=== PATIENT | male | born 1965 ===

== ENCOUNTER 2018-02-04 18:00 | Emergency (ER) | payer OTHER ==
[2018-02-04 18:10] VITALS: TEMP 98.3; O2SAT 99
[2018-02-04 19:00] VITALS: BP 132/76; PULSE 85; RESP 16
--- NOTE | 2018-02-04 19:16 | ED PDOC ---
HPI: Eye Injury/Pain Time Seen by Provider: 02/04/18 18:15 Chief Complaint (Nursing): Eye Problem Chief Complaint (Provider): Eye Problem History Per: Patient History/Exam Limitations: no limitations Onset/Duration Of Symptoms: Days (2x) Additional Complaint(s): 52 year old male presents to the ED complaining of redness, itchiness, and tearing to both eyes. 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 Reports he is exposed to dust and pollutants in the air. Otherwise: (-) rash, (- ) foreign body, (-) visual changes, (-) injury, (-) eye pain, (-) h/o seasonal allergies, (-) contact lens wear, (-) URI symptoms and (-) fever. Past Medical History Reviewed: Historical Data, Nursing Documentation, Vital Signs Vital Signs: Last Vital Signs Temp 98.3 F 02/04/18 18:07 Pulse 85 02/04/18 19:00 Resp 16 02/04/18 19:00 BP 132/76 02/04/18 19:00 Pulse Ox 99 02/04/18 19:00 - Medical History PMH: No Chronic Diseases - Family History Family History: States: Unknown Family Hx - Social History Current smoker - smoking cessation education provided: Yes (Heavy Smoker > 10 Cigarettes Daily) Alcohol: Social Drugs: Denies - Home Medications Home Medications: Ambulatory Orders Medication Instructions Recorded Cetirizine HCl [Zyrtec] 10 mg PO DAILY #30 capsule 02/04/18 Olopatadine 0.1% Opht [Patanol 1 drop OU DAILY #1 bottle 02/04/18 0.1% Opht Soln] Tobramycin [Tobrex 5 ml] 1 drop OU Q4H #1 bottle 02/04/18 - Allergies Allergies/Adverse Reactions: Allergies Allergy/AdvReac Type Severity Reaction Status Date / Time No Known Allergies Allergy Verified 02/04/18 18:07 Review of Systems ROS Statement: Except As Marked, All Systems Reviewed And Found Negative Constitutional: Negative for: Fever Eyes: Positive for: Redness, Other (tearing in both eyes, itchy). Negative for : Pain, Vision Change Respiratory: Negative for: Cough, Shortness of Breath Physical Exam - Physical Exam Comments: GENERAL APPEARANCE: Patient is awake, alert, oriented x 3, in no acute distress. HEENT: (-) facial swelling and erythema, (-) facial blisters. LIDS & LASHES: Normal, (-) d/c. PUPILS: Pupils equal and reactive. EOM's: Intact. CONJUNCTIVAE: (+) injection. CORNEA: (-) foreign body. ENT : Airway patent. Mucus membranes moist. Neck supple with FROM, (-) lymphadenopathy. - ECG O2 Sat by Pulse Oximetry: 99 (RA) Pulse Ox Interpretation: Normal Medical Decision Making Medical Decision Making: Time: 1814 Initial Impression: Allergic Conjunctivitis, consider bacterial conjunctivitis Advised to follow up with eye doctor referral provided in 1-2 days without fail. Advised to take medication as prescribed. Return to the emergency room at any time for any new or worsening symptoms. Patient states he fully agrees with and understands discharge instructions. States that he agrees with the plan and disposition. Verbalized and repeated discharge instructions and plan. I have given the patient opportunity to ask any additional questions. Scribe Attestation: Documented by Kwame Boo, acting as a scribe for Alicia Hemphill PA-C Provider Scribe Attestation: All medical record entries made by the Scribe were at my direction and personally dictated by me. I have reviewed the chart and agree that the record accurately reflects my personal performance of the history, physical exam, medical decision making, and the department course for this patient. I have also personally directed, reviewed, and agree with the discharge instructions and disposition. Disposition - Clinical Impression Clinical Impression: Allergic conjunctivitis - Patient ED Disposition Is Patient to be Admitted: No Counseled Patient/Family Regarding: Diagnosis, Need For Followup, Rx Given - Disposition Referrals: Pualino Shi MD [Staff Provider] - Disposition: Routine/Home Disposition Time: 18:45 Condition: STABLE Additional Instructions: Thank you for letting us take care of you today. You were treated for allergic conjunctivitis. The emergency medical care you received today was directed at your acute symptoms. If you were prescribed any medication, please fill it and take as directed. It may take several days for your symptoms to resolve. Return to the Emergency Department if your symptoms worsen, do not improve, or if you have any other problems. Please contact your doctor in 2 days for re-evaluation and follow up / or call one of the physicians/clinics you have been referred to that are listed on the Patient Visit Information form that is included in your discharge packet. Bring any paperwork you were given at discharge with you along with any medications you are taking to your follow up visit. Our treatment cannot replace ongoing medical care by a primary care provider (PCP) outside of the emergency department. Thank you for allowing the [email or web address] team to be part of your care today. 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
== END 2018-02-04 19:01 | disposition home or self-care (01) ==
LOC: H.ER 18:00
DX: H10.10 Acute atopic conjunctivitis, unspecified eye (principal)